=== PATIENT | female | born 1960 | race Caucasian/White ===

== ENCOUNTER 2019-04-29 02:31 | Emergency (ER) | payer OTHER ==
[2019-04-29 02:58] VITALS: TEMP 98.1; BMI 35.5
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
[2019-04-29] MEDS ORDERED: METHOCARBAMOL 500 MG TABLET PO ONE (03:31)
[2019-04-29] MEDS ORDERED: ACETAMINOPHEN 325 MG TABLET (FP) PO ONE (03:31)
[2019-04-29] MEDS ORDERED: ACETAMINOPHEN 325 MG TABLET (FP) ONE (03:38)
[2019-04-29] MEDS ORDERED: METHOCARBAMOL 500 MG TABLET ONE (03:38)
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
[2019-04-29 06:29] VITALS: BP 118/73; PULSE 74
== END 2019-04-29 06:20 | disposition home or self-care (01) ==
LOC: JER 02:31
DX: S49.82XA Other specified injuries of left shoulder and upper arm, initial encounter (principal); M25.512 Pain in left shoulder; V63.6XXA Passenger in heavy transport vehicle injured in collision with car, pick-up truck or van in traffic accident, initial encounter; Y92.414 Local residential or business street as the place of occurrence of the external cause; Y99.0 Civilian activity done for income or pay; Y93.89 Activity, other specified
CPT/HCPCS: 99282-25